=== PATIENT | male | born 1945 | race African-American/Black ===

== ENCOUNTER 2018-08-20 09:59 | Inpatient (IN) | payer MEDICARE, OTHER ==
[~2018-08-20] VITALS: Ht 167.6 cm; Wt 81.6 kg
[2018-08-20] MEDS ORDERED: PRO1 PO (10:09)
[2018-08-20] MEDS ORDERED: ASPI-986 PO (10:09)
[2018-08-20] MEDS ORDERED: FENTANYL CITRATE/PF 50MCG/ML 2ML VIAL IV ONE (10:30)
[2018-08-20 11:04] LABS: BASOPHILS % 0.9 % (0.0-2.0); EOSINOPHILS % 1.1 % (0.0-5.0); HEMATOCRIT. 27.5 % (42.0-52.0); HEMOGLOBIN. 9.5 g/dL (14.0-18.0); LYMPHOCYTES % 16.4 % (20.0-50.0); MEAN CORPUSCULAR HEMOGLOBIN 30.5 pg (28.0-32.0); MEAN PLATELET VOLUME 7.2 fl (7.4-10.4); MONOCYTES % 8.6 % (2.0-8.0); PLATELET 169 x1000/uL (130-400); RED BLOOD CELL COUNT 3.13 mill/uL (4.7-6.1); RED CELL DISTRIBUTION WIDTH 15.2 % (11.6-14.6)
[2018-08-20 11:11] LABS: CHLORIDE 102 mEq/L (98-107); INR 1.1; PROTHROMBIN TIME 10.7 sec (9.1-11.1)
[2018-08-20 11:20] LABS: PHOSPHORUS 2.5 mg/dL (2.5-4.9)
[2018-08-20] MEDS ORDERED: OXYCODONE HCL/ACETAMINOPHEN 5/325MG TABLET PO ONE (12:15)
[2018-08-20] MEDS ORDERED: ONDANSETRON HCL 4MG/2ML INJ IV PRN (15:15)
[2018-08-20] MEDS ORDERED: POTASSIUM CHLORIDE 20MEQ TABLET SR PO PRN (15:15)
[2018-08-20] MEDS ORDERED: HYDROCODONE/ACETAMINOPHEN 5/325MG TABLET PO PRN (15:15)
[2018-08-20] MEDS ORDERED: ACETAMINOPHEN 325MG TABLET PO PRN (15:15)
[2018-08-20] MEDS ORDERED: CLONIDINE 0.1MG TABLET PO PRN (15:15)
[2018-08-20] MEDS ORDERED: HYDROCODONE/ACETAMINOPHEN 10/325MG TABLET PO PRN (15:15)
[2018-08-20 15:50] VITALS: BP 146/84
[2018-08-20 16:00] VITALS: BP 146/84
[2018-08-20] MEDS: HYDROMORPHONE HCL/PF 2MG/ML CPJ IV PRN (16:12)
[2018-08-20] MEDS: PANTOPRAZOLE 40MG DR TABLET PO SCH (19:06)
[2018-08-20] MEDS: AMOXICILLIN 500 MG CAPSULE PO SCH (19:06)
[2018-08-20 20:00] VITALS: BP 155/81
[2018-08-20] MEDS: NIFEDIPINE 10MG CAPSULE PO SCH (22:13)
[2018-08-20] MEDS: CLARITHROMYCIN 500MG TABLET PO SCH (22:14)
[2018-08-21] VITALS: BP 126/65
[2018-08-21] MEDS: HYDROMORPHONE HCL/PF 2MG/ML CPJ IV PRN ×5 (03:17→22:49)
[2018-08-21 03:33] VITALS: BP 124/72
[2018-08-21] MEDS: AMOXICILLIN 500 MG CAPSULE PO SCH ×2 (06:00→17:33)
[2018-08-21] MEDS: NIFEDIPINE 10MG CAPSULE PO SCH ×3 (06:00→22:00)
[2018-08-21 07:08] LABS: BASOPHILS % 0.5 % (0.0-2.0); EOSINOPHILS % 1.9 % (0.0-5.0); HEMATOCRIT. 27.3 % (42.0-52.0); HEMOGLOBIN. 9.5 g/dL (14.0-18.0); LYMPHOCYTES % 12.7 % (20.0-50.0); MEAN CORPUSCULAR HEMOGLOBIN 30.6 pg (28.0-32.0); MEAN CORPUSCULAR VOLUME 87.8 fL (80.0-94.0); MEAN PLATELET VOLUME 7.5 fl (7.4-10.4); MONOCYTES % 10.8 % (2.0-8.0); NEUTROPHILS % 74.1 % (40.0-76.0); PLATELET 164 x1000/uL (130-400); RED BLOOD CELL COUNT 3.11 mill/uL (4.7-6.1); RED CELL DISTRIBUTION WIDTH 15.1 % (11.6-14.6)
[2018-08-21 08:00] VITALS: BP 112/70
[2018-08-21] MEDS: CLARITHROMYCIN 500MG TABLET PO SCH ×2 (09:19→21:00)
[2018-08-21] MEDS: PANTOPRAZOLE 40MG DR TABLET PO SCH ×2 (09:19→16:38)
[2018-08-21] MEDS: FOLIC ACID/VITAMIN B COMP W-C TABLET PO SCH (10:26)
[2018-08-21 11:58] VITALS: BP 123/83
[2018-08-21] MEDS: CALCIUM ACETATE 667MG CAPSULE PO SCH ×2 (12:00→17:33)
[2018-08-21 16:00] VITALS: BP 146/82
[2018-08-21 20:00] VITALS: BP 176/87
[2018-08-22] VITALS: BP 135/63
[2018-08-22] MEDS ORDERED: ACETAMINOPHEN 650MG SUPP PR PRN (01:30)
[2018-08-22] MEDS: HYDROMORPHONE HCL/PF 2MG/ML CPJ IV PRN ×6 (02:37→22:47)
[2018-08-22 04:00] VITALS: BP 148/73
[2018-08-22 07:32] LABS: BASOPHILS % 0.6 % (0.0-2.0); EOSINOPHILS % 0.6 % (0.0-5.0); HEMATOCRIT. 30.5 % (42.0-52.0); HEMOGLOBIN. 10.6 g/dL (14.0-18.0); LYMPHOCYTES % 10.1 % (20.0-50.0); MEAN CORPUSCULAR HEMOGLOBIN 30.7 pg (28.0-32.0); MEAN CORPUSCULAR VOLUME 88.2 fL (80.0-94.0); MEAN PLATELET VOLUME 8.4 fl (7.4-10.4); MONOCYTES % 9.9 % (2.0-8.0); NEUTROPHILS % 78.8 % (40.0-76.0); PLATELET 181 x1000/uL (130-400); RED BLOOD CELL COUNT 3.46 mill/uL (4.7-6.1); RED CELL DISTRIBUTION WIDTH 15.6 % (11.6-14.6)
[2018-08-22] MEDS: CALCIUM ACETATE 667MG CAPSULE PO SCH ×3 (07:50→17:27)
[2018-08-22 08:00] VITALS: BP 122/74
[2018-08-22] MEDS: CLARITHROMYCIN 500MG TABLET PO SCH ×2 (08:51→21:05)
[2018-08-22] MEDS: PANTOPRAZOLE 40MG DR TABLET PO SCH ×2 (08:51→17:27)
[2018-08-22] MEDS: NIFEDIPINE 10MG CAPSULE PO SCH ×3 (08:51→22:46)
[2018-08-22] MEDS: FOLIC ACID/VITAMIN B COMP W-C TABLET PO SCH (08:51)
[2018-08-22] MEDS: AMOXICILLIN 500 MG CAPSULE PO SCH ×2 (08:51→17:27)
[2018-08-22 12:00] VITALS: BP 121/69
[2018-08-22 16:00] VITALS: BP 133/82
[2018-08-22 20:00] VITALS: BP 118/69
[2018-08-23] VITALS: BP 106/71
[2018-08-23] MEDS: HYDROMORPHONE HCL/PF 2MG/ML CPJ IV PRN ×4 (02:16→13:24)
[2018-08-23 04:00] VITALS: BP 126/69
[2018-08-23] MEDS: AMOXICILLIN 500 MG CAPSULE PO SCH ×2 (05:13→18:00)
[2018-08-23] MEDS: NIFEDIPINE 10MG CAPSULE PO SCH ×3 (06:00→22:31)
[2018-08-23 07:09] LABS: BASOPHILS % 0.5 % (0.0-2.0); EOSINOPHILS % 1.5 % (0.0-5.0); HEMATOCRIT. 29.4 % (42.0-52.0); HEMOGLOBIN. 9.9 g/dL (14.0-18.0); LYMPHOCYTES % 13.3 % (20.0-50.0); MEAN CORPUSCULAR VOLUME 89.4 fL (80.0-94.0); MEAN PLATELET VOLUME 8.4 fl (7.4-10.4); MONOCYTES % 13.1 % (2.0-8.0); NEUTROPHILS % 71.6 % (40.0-76.0); PLATELET 164 x1000/uL (130-400); RED BLOOD CELL COUNT 3.29 mill/uL (4.7-6.1); RED CELL DISTRIBUTION WIDTH 15.3 % (11.6-14.6)
[2018-08-23] MEDS: CALCIUM ACETATE 667MG CAPSULE PO SCH ×3 (07:50→17:50)
[2018-08-23] MEDS ORDERED: DEXT 5%/0.45% NACL 1000ML 1,000 ML IV SCH (08:45)
[2018-08-23] MEDS: PANTOPRAZOLE 40MG DR TABLET PO SCH ×2 (09:00→17:00)
[2018-08-23] MEDS: FOLIC ACID/VITAMIN B COMP W-C TABLET PO SCH (09:00)
[2018-08-23] MEDS: CLARITHROMYCIN 500MG TABLET PO SCH ×2 (09:00→20:53)
[2018-08-23 12:00] VITALS: BP 133/76
[2018-08-23] MEDS ORDERED: KETOROLAC 30MG/ML VIAL ONE (14:04)
[2018-08-23] MEDS ORDERED: MORPHINE SULFATE/PF 1MG/ML 10ML AMP ONE (14:04)
[2018-08-23] MEDS ORDERED: EPINEPHRINE 1:1000 1 MG/ML AMP ONE (14:04)
[2018-08-23] MEDS ORDERED: BUPIVACAINE HCL/PF 0.5% (5MG/ML) 10ML ONE (14:08)
[2018-08-23] MEDS ORDERED: NORMAL SALINE 0.9% 10 ML SYR ONE (14:16)
[2018-08-23] MEDS ORDERED: ROPIVACAINE HCL 10MG/ML 20 ML VIAL EPI ONE (14:16)
[2018-08-23] MEDS ORDERED: TRANEXAMIC ACID 1,000 MG/10 ML IV SCH (15:15)
[2018-08-23] MEDS ORDERED: TRANEXAMIC ACID 1,000 MG in SODIUM CHLORIDE 0.9% 100 ML IV SCH (15:15)
[2018-08-23 16:00] VITALS: BP 166/86
[2018-08-23] MEDS ORDERED: FENTANYL CITRATE/PF 50MCG/ML 2ML VIAL ONE (17:27)
[2018-08-23] MEDS ORDERED: HYDROMORPHONE HCL/PF 2MG/ML CPJ IV PRN (17:45)
[2018-08-23] MEDS ORDERED: FENTANYL CITRATE/PF 50MCG/ML 2ML VIAL IV PRN (17:45)
[2018-08-23] MEDS ORDERED: PROPOFOL 200MG/20ML VIAL IV ONE (17:59)
[2018-08-23] MEDS ORDERED: CEFAZOLIN 1000MG PREMIX 50 ML IV SCH ×2 (18:45→22:00)
[2018-08-23 20:00] VITALS: BP 116/66
[2018-08-24] VITALS: BP 116/68
[2018-08-24 04:00] VITALS: BP 116/56
[2018-08-24] MEDS: HYDROMORPHONE HCL/PF 2MG/ML CPJ IV PRN (05:51)
[2018-08-24] MEDS: NIFEDIPINE 10MG CAPSULE PO SCH ×2 (05:52→14:48)
[2018-08-24] MEDS: AMOXICILLIN 500 MG CAPSULE PO SCH (05:52)
[2018-08-24 07:35] LABS: BASOPHILS % 0.4 % (0.0-2.0); HEMATOCRIT. 27.1 % (42.0-52.0); HEMOGLOBIN. 9.2 g/dL (14.0-18.0); LYMPHOCYTES % 10.4 % (20.0-50.0); MEAN CORPUSCULAR HEMOGLOBIN 30.4 pg (28.0-32.0); MEAN CORPUSCULAR VOLUME 89.3 fL (80.0-94.0); MEAN PLATELET VOLUME 8.3 fl (7.4-10.4); MONOCYTES % 13.3 % (2.0-8.0); NEUTROPHILS % 74.9 % (40.0-76.0); PLATELET 168 x1000/uL (130-400); RED BLOOD CELL COUNT 3.03 mill/uL (4.7-6.1); RED CELL DISTRIBUTION WIDTH 15.7 % (11.6-14.6)
[2018-08-24 08:00] VITALS: BP 118/62
[2018-08-24] MEDS ORDERED: ASPIRIN 325MG EC TABLET PO SCH (09:00)
[2018-08-24] MEDS: PANTOPRAZOLE 40MG DR TABLET PO SCH (09:59)
[2018-08-24] MEDS: CLARITHROMYCIN 500MG TABLET PO SCH (09:59)
[2018-08-24] MEDS: CALCIUM ACETATE 667MG CAPSULE PO SCH ×2 (09:59→14:38)
[2018-08-24] MEDS: FOLIC ACID/VITAMIN B COMP W-C TABLET PO SCH (10:00)
[2018-08-24 11:02] LABS: CHLORIDE 103 mEq/L (98-107)
[2018-08-24 12:00] VITALS: BP 115/62
[2018-08-24] MEDS ORDERED: LACTULOSE 20G/30ML UDC PO SCH (14:00)
[2018-08-24 16:00] VITALS: BP 105/56
[2018-08-24 17:00] VITALS: BP 123/66
== END 2018-08-24 17:29 | DRG 469 ==
LOC: ER 09:59 → ENRESERV 11:58 → 6EST 12:06 → EDBEDREQTM 12:19 → EDBEDREQ 12:19
PROVIDERS: ADMIT Physical Medicine & Rehabilitation Spinal Cord Injury Medicine; ATTEND Emergency Medicine
PROC: 5A1D70Z Performance of Urinary Filtration, Intermittent, Less than 6 Hours Per Day (ICD-10-PCS; 2018-08-21)
PROC: 5A1D70Z Performance of Urinary Filtration, Intermittent, Less than 6 Hours Per Day (ICD-10-PCS; 2018-08-23)
PROC: 0SRR0JA Replacement of Right Hip Joint, Femoral Surface with Synthetic Substitute, Uncemented, Open Approach (ICD-10-PCS; principal; 2018-08-23 16:30)
DX: S72.031A Displaced midcervical fracture of right femur, initial encounter for closed fracture (principal); N18.6 End stage renal disease; I12.0 Hypertensive chronic kidney disease with stage 5 chronic kidney disease or end stage renal disease; Z99.2 Dependence on renal dialysis; K29.70 Gastritis, unspecified, without bleeding; D64.9 Anemia, unspecified; B96.81 Helicobacter pylori [H. pylori] as the cause of diseases classified elsewhere; H91.90 Unspecified hearing loss, unspecified ear; I45.81 Long QT syndrome; W18.39XA Other fall on same level, initial encounter; Y93.89 Activity, other specified; Y92.89 Other specified places as the place of occurrence of the external cause; Y99.8 Other external cause status
CPT/HCPCS: 36415; 36430; 71045; 72170; 73502; 73560; 80048; 83735; 84100; 84484; 86850; 86900; 88305; 88311; 93005; 93306; 96374; 97110; 97162; 97530; 99291; A4216; C1776; J0690; J1170; J1885; J2274; J2704; J2795; J3010; J3490; J7030; J7050

== ENCOUNTER 2018-08-24 17:20 | Inpatient (IN) | payer MEDICARE, OTHER ==
[~2018-08-24] VITALS: Ht 167.6 cm; Wt 81.6 kg
[2018-08-24 17:20] VITALS: BP 122/60
[~2018-08-24 17:20] MED LIST: ASPI-986 PO; PRO1 PO
[2018-08-24] MEDS ORDERED: HYDROMORPHONE HCL/PF 2MG/ML CPJ IV PRN (18:30)
[2018-08-24] MEDS ORDERED: CLONIDINE 0.1MG TABLET PO PRN (18:30)
[2018-08-24] MEDS ORDERED: POTASSIUM CHLORIDE 20MEQ TABLET SR PO PRN (18:30)
[2018-08-24] MEDS ORDERED: ACETAMINOPHEN 650MG SUPP PR PRN (18:30)
[2018-08-24] MEDS ORDERED: THROAT LOZENGES-BENZOCAINE/MENTH/CETYLPYRD CL LOZENGES MM PRN (18:45)
[2018-08-24] MEDS: DEXT 5%/0.45% NACL 1000ML 1,000 ML IV SCH (19:15)
[2018-08-24 20:00] VITALS: BP 129/68
[2018-08-24] MEDS ORDERED: PNEUMOCOCCAL 23-VAL P-SAC VAC 0.5 ML IM ONE (20:15)
[2018-08-24 22:00] VITALS: BP 129/68
[2018-08-24] MEDS: AMOXICILLIN 500 MG CAPSULE PO SCH (22:01)
[2018-08-24] MEDS: LACTULOSE 20G/30ML UDC PO SCH (22:01)
[2018-08-24] MEDS: NIFEDIPINE 10MG CAPSULE PO SCH (22:02)
[2018-08-24] MEDS: CEFAZOLIN 1000MG PREMIX 50 ML IV SCH (22:02)
[2018-08-24] MEDS: CLARITHROMYCIN 500MG TABLET PO SCH (22:41)
[2018-08-25] VITALS: BP 129/68
[2018-08-25] MEDS: NIFEDIPINE 10MG CAPSULE PO SCH ×2 (06:38→15:17)
[2018-08-25 07:22] LABS: BASOPHILS % 0.5 % (0.0-2.0); EOSINOPHILS % 1.6 % (0.0-5.0); HEMATOCRIT. 27.6 % (42.0-52.0); HEMOGLOBIN. 9.3 g/dL (14.0-18.0); LYMPHOCYTES % 14.2 % (20.0-50.0); MEAN CORPUSCULAR HEMOGLOBIN 30.3 pg (28.0-32.0); MEAN PLATELET VOLUME 8.2 fl (7.4-10.4); MONOCYTES % 13.8 % (2.0-8.0); NEUTROPHILS % 69.9 % (40.0-76.0); PLATELET 220 x1000/uL (130-400); RED BLOOD CELL COUNT 3.07 mill/uL (4.7-6.1)
[2018-08-25 07:53] LABS: CHLORIDE 101 mEq/L (98-107)
[2018-08-25 08:00] VITALS: BP 127/75
[2018-08-25] MEDS: CALCIUM ACETATE 667MG CAPSULE PO SCH ×3 (08:57→17:21)
[2018-08-25] MEDS: AMOXICILLIN 500 MG CAPSULE PO SCH (08:57)
[2018-08-25] MEDS: CLARITHROMYCIN 500MG TABLET PO SCH (08:57)
[2018-08-25] MEDS: FOLIC ACID/VITAMIN B COMP W-C TABLET PO SCH (08:57)
[2018-08-25] MEDS: LACTULOSE 20G/30ML UDC PO SCH ×4 (08:57→17:00)
[2018-08-25] MEDS: PANTOPRAZOLE 40MG DR TABLET PO SCH ×2 (08:57→17:20)
[2018-08-25] MEDS: ASPIRIN 325MG EC TABLET PO SCH ×2 (08:57→17:21)
[2018-08-25] MEDS: DOCUSATE SODIUM 100MG CAPSULE PO SCH (17:21)
[2018-08-25] MEDS: DEXT 5%/0.45% NACL 1000ML 1,000 ML IV SCH (18:38)
[2018-08-25 20:00] VITALS: BP 121/67
[2018-08-25] MEDS: HYDROCODONE/ACETAMINOPHEN 10/325MG TABLET PO PRN (20:38)
[2018-08-25] MEDS: POLYETHYLENE GLYCOL 3350 (17GM) 1 DOSE PACK PO SCH (21:00)
[2018-08-25] MEDS: CEFAZOLIN 1000MG PREMIX 50 ML IV SCH (21:04)
[2018-08-26 00:58] VITALS: BP 110/71
[2018-08-26] MEDS: AMOXICILLIN 500 MG CAPSULE PO SCH ×3 (00:58→20:36)
[2018-08-26] MEDS: NIFEDIPINE 10MG CAPSULE PO SCH ×4 (00:58→21:20)
[2018-08-26] MEDS: CLARITHROMYCIN 500MG TABLET PO SCH ×3 (00:58→20:36)
[2018-08-26 07:11] LABS: BASOPHILS % 0.4 % (0.0-2.0); EOSINOPHILS % 0.7 % (0.0-5.0); HEMOGLOBIN. 9.1 g/dL (14.0-18.0); LYMPHOCYTES % 10.6 % (20.0-50.0); MEAN CORPUSCULAR HEMOGLOBIN 29.8 pg (28.0-32.0); MEAN CORPUSCULAR VOLUME 88.9 fL (80.0-94.0); MEAN PLATELET VOLUME 8.1 fl (7.4-10.4); NEUTROPHILS % 74.3 % (40.0-76.0); PLATELET 230 x1000/uL (130-400); RED BLOOD CELL COUNT 3.04 mill/uL (4.7-6.1); RED CELL DISTRIBUTION WIDTH 15.6 % (11.6-14.6)
[2018-08-26 08:00] VITALS: BP 118/64
[2018-08-26] MEDS: CALCIUM ACETATE 667MG CAPSULE PO SCH ×3 (09:28→17:53)
[2018-08-26] MEDS: FOLIC ACID/VITAMIN B COMP W-C TABLET PO SCH (09:28)
[2018-08-26] MEDS: ASPIRIN 325MG EC TABLET PO SCH ×2 (09:28→17:53)
[2018-08-26] MEDS: PANTOPRAZOLE 40MG DR TABLET PO SCH ×2 (09:28→17:53)
[2018-08-26] MEDS: DOCUSATE SODIUM 100MG CAPSULE PO SCH ×2 (09:28→17:53)
[2018-08-26] MEDS ORDERED: THROAT LOZENGES-BENZOCAINE/MENTH/CETYLPYRD CL LOZENGES MM PRN (10:30)
[2018-08-26 20:00] VITALS: BP 106/63
[2018-08-26] MEDS: POLYETHYLENE GLYCOL 3350 (17GM) 1 DOSE PACK PO SCH (20:36)
[2018-08-27] MEDS: NIFEDIPINE 10MG CAPSULE PO SCH ×3 (06:07→22:00)
[2018-08-27 06:55] LABS: HEMATOCRIT. 23.6 % (42.0-52.0); MEAN CORPUSCULAR HEMOGLOBIN 30.5 pg (28.0-32.0); MEAN CORPUSCULAR VOLUME 89.8 fL (80.0-94.0); MEAN PLATELET VOLUME 7.7 fl (7.4-10.4); PLATELET 229 x1000/uL (130-400); RED BLOOD CELL COUNT 2.63 mill/uL (4.7-6.1); RED CELL DISTRIBUTION WIDTH 15.8 % (11.6-14.6)
[2018-08-27 07:16] LABS: PHOSPHORUS 4.2 mg/dL (2.5-4.9)
[2018-08-27 07:50] VITALS: BP 112/62
[2018-08-27 08:05] LABS: FOLIC ACID (FOLATE) SERUM 13.3 ng/mL (>5.38)
[2018-08-27] MEDS: CALCIUM ACETATE 667MG CAPSULE PO SCH ×3 (08:41→17:00)
[2018-08-27] MEDS: AMOXICILLIN 500 MG CAPSULE PO SCH ×2 (08:41→21:00)
[2018-08-27] MEDS: ASPIRIN 325MG EC TABLET PO SCH (08:41)
[2018-08-27] MEDS: FOLIC ACID/VITAMIN B COMP W-C TABLET PO SCH (08:41)
[2018-08-27] MEDS: CLARITHROMYCIN 500MG TABLET PO SCH ×2 (08:41→21:00)
[2018-08-27] MEDS: PANTOPRAZOLE 40MG DR TABLET PO SCH ×2 (08:41→17:33)
[2018-08-27] MEDS: DOCUSATE SODIUM 100MG CAPSULE PO SCH ×2 (08:41→17:33)
[2018-08-27 09:20] LABS: PLATELET ESTIMATE NORMAL
[2018-08-27] MEDS ORDERED: BARIUM SULFATE 176 GM SUSP.RECON ONE (09:43)
[2018-08-27 11:55] VITALS: BP 109/64
[2018-08-27] MEDS: HYDROCODONE/ACETAMINOPHEN 10/325MG TABLET PO PRN ×2 (12:01→15:52)
[2018-08-27 15:45] VITALS: BP 116/66
[2018-08-27] MEDS: LACTULOSE 20G/30ML UDC PO SCH ×2 (20:00→21:00)
[2018-08-27 20:35] VITALS: BP 110/66
[2018-08-27] MEDS: EPOETIN ALFA 10000UNITS/ML VIAL SUBCUT SCH (21:00)
[2018-08-27] MEDS: POLYETHYLENE GLYCOL 3350 (17GM) 1 DOSE PACK PO SCH (21:00)
[2018-08-28] MEDS: EPOETIN ALFA 10000UNITS/ML VIAL SUBCUT SCH (02:32)
[2018-08-28] MEDS: HYDROCODONE/ACETAMINOPHEN 5/325MG TABLET PO PRN ×3 (03:01→22:52)
[2018-08-28] MEDS: NIFEDIPINE 10MG CAPSULE PO SCH ×4 (05:39→22:00)
[2018-08-28 07:46] VITALS: BP 100/63
[2018-08-28 07:48] LABS: HEMATOCRIT. 25.3 % (42.0-52.0); HEMOGLOBIN. 8.5 g/dL (14.0-18.0); MEAN PLATELET VOLUME 7.6 fl (7.4-10.4); PLATELET 270 x1000/uL (130-400); RED BLOOD CELL COUNT 2.84 mill/uL (4.7-6.1); RED CELL DISTRIBUTION WIDTH 15.3 % (11.6-14.6)
[2018-08-28] MEDS: AMOXICILLIN 500 MG CAPSULE PO SCH ×2 (08:08→21:29)
[2018-08-28] MEDS: LACTULOSE 20G/30ML UDC PO SCH (08:08)
[2018-08-28] MEDS: DOCUSATE SODIUM 100MG CAPSULE PO SCH ×2 (08:09→16:33)
[2018-08-28] MEDS: FOLIC ACID/VITAMIN B COMP W-C TABLET PO SCH (08:09)
[2018-08-28] MEDS: PANTOPRAZOLE 40MG DR TABLET PO SCH ×2 (08:09→16:33)
[2018-08-28] MEDS: ENOXAPARIN 30MG/0.3ML SYR SUBCUT SCH (08:09)
[2018-08-28] MEDS: CALCIUM ACETATE 667MG CAPSULE PO SCH ×3 (08:09→16:33)
[2018-08-28] MEDS: CLARITHROMYCIN 500MG TABLET PO SCH ×2 (08:09→21:29)
[2018-08-28 09:35] LABS: PLATELET ESTIMATE NORMAL
[2018-08-28] MEDS ORDERED: SORBITOL 70% SOLN 30ML PO SCH (13:00)
[2018-08-28 20:00] VITALS: BP 121/54
[2018-08-28] MEDS: POLYETHYLENE GLYCOL 3350 (17GM) 1 DOSE PACK PO SCH ×2 (21:00→21:29)
[2018-08-28] MEDS: LIDOCAINE 5% PATCH TOP SCH (21:30)
[2018-08-29] MEDS: NIFEDIPINE 10MG CAPSULE PO SCH ×3 (06:00→21:48)
[2018-08-29 07:42] VITALS: BP 117/68
[2018-08-29] MEDS: DOCUSATE SODIUM 100MG CAPSULE PO SCH ×2 (08:30→19:08)
[2018-08-29] MEDS: FOLIC ACID/VITAMIN B COMP W-C TABLET PO SCH (08:30)
[2018-08-29] MEDS: HYDROCODONE/ACETAMINOPHEN 10/325MG TABLET PO PRN ×2 (08:32→13:27)
[2018-08-29] MEDS: PANTOPRAZOLE 40MG DR TABLET PO SCH ×2 (08:32→19:07)
[2018-08-29] MEDS: AMOXICILLIN 500 MG CAPSULE PO SCH ×2 (08:32→21:48)
[2018-08-29] MEDS: CLARITHROMYCIN 500MG TABLET PO SCH ×2 (08:32→21:48)
[2018-08-29] MEDS: CALCIUM ACETATE 667MG CAPSULE PO SCH ×3 (08:32→19:08)
[2018-08-29] MEDS: LIDOCAINE 5% PATCH TOP SCH (08:33)
[2018-08-29] MEDS: ENOXAPARIN 30MG/0.3ML SYR SUBCUT SCH (08:34)
[2018-08-29 11:22] LABS: HEMATOCRIT. 25.8 % (42.0-52.0); HEMOGLOBIN. 8.8 g/dL (14.0-18.0); MEAN CORPUSCULAR HEMOGLOBIN 30.4 pg (28.0-32.0); MEAN CORPUSCULAR VOLUME 89.2 fL (80.0-94.0); MEAN PLATELET VOLUME 7.5 fl (7.4-10.4); PLATELET 308 x1000/uL (130-400); RED BLOOD CELL COUNT 2.89 mill/uL (4.7-6.1); RED CELL DISTRIBUTION WIDTH 15.2 % (11.6-14.6)
[2018-08-29 11:43] LABS: CHLORIDE 96 mEq/L (98-107)
[2018-08-29 11:52] LABS: PHOSPHORUS 4.3 mg/dL (2.5-4.9)
[2018-08-29 12:38] LABS: PLATELET ESTIMATE NORMAL
[2018-08-29 20:00] VITALS: BP 103/41
[2018-08-29] MEDS: POLYETHYLENE GLYCOL 3350 (17GM) 1 DOSE PACK PO SCH (21:48)
[2018-08-29] MEDS: EPOETIN ALFA 10000UNITS/ML VIAL SUBCUT SCH (23:15)
[2018-08-30] MEDS: HYDROCODONE/ACETAMINOPHEN 5/325MG TABLET PO PRN (00:16)
[2018-08-30] MEDS: NIFEDIPINE 10MG CAPSULE PO SCH ×3 (06:00→21:32)
[2018-08-30 08:00] VITALS: BP 108/56
[2018-08-30] MEDS: ENOXAPARIN 30MG/0.3ML SYR SUBCUT SCH (08:17)
[2018-08-30] MEDS: LIDOCAINE 5% PATCH TOP SCH (08:18)
[2018-08-30] MEDS: HYDROCODONE/ACETAMINOPHEN 10/325MG TABLET PO PRN ×2 (08:20→12:48)
[2018-08-30] MEDS: CALCIUM ACETATE 667MG CAPSULE PO SCH ×3 (08:22→17:58)
[2018-08-30] MEDS: FOLIC ACID/VITAMIN B COMP W-C TABLET PO SCH (08:22)
[2018-08-30] MEDS: DOCUSATE SODIUM 100MG CAPSULE PO SCH ×2 (08:22→17:58)
[2018-08-30] MEDS: AMOXICILLIN 500 MG CAPSULE PO SCH ×2 (08:22→20:58)
[2018-08-30] MEDS: PANTOPRAZOLE 40MG DR TABLET PO SCH ×2 (08:22→17:58)
[2018-08-30] MEDS: CLARITHROMYCIN 500MG TABLET PO SCH ×2 (08:22→20:58)
[2018-08-30 17:09] LABS: 25-HYDROXY VITAMIN D3 18 ng/mL (.)
[2018-08-30] MEDS: BISACODYL 10MG SUPP PR NR (17:58)
[2018-08-30] MEDS: LACTULOSE 20G/30ML UDC PO SCH ×2 (18:03→20:58)
[2018-08-30 20:00] VITALS: BP 98/62
[2018-08-30] MEDS: POLYETHYLENE GLYCOL 3350 (17GM) 1 DOSE PACK PO SCH (20:59)
[2018-08-30 21:32] VITALS: BP 106/61
[2018-08-31] MEDS: NIFEDIPINE 10MG CAPSULE PO SCH ×4 (05:41→21:46)
[2018-08-31] MEDS: HYDROCODONE/ACETAMINOPHEN 5/325MG TABLET PO PRN ×2 (06:52→14:26)
[2018-08-31 07:47] LABS: HEMATOCRIT. 26.3 % (42.0-52.0); HEMOGLOBIN. 8.9 g/dL (14.0-18.0); MEAN CORPUSCULAR HEMOGLOBIN 30.5 pg (28.0-32.0); MEAN CORPUSCULAR VOLUME 90.5 fL (80.0-94.0); MEAN PLATELET VOLUME 7.3 fl (7.4-10.4); PLATELET 331 x1000/uL (130-400); RED BLOOD CELL COUNT 2.91 mill/uL (4.7-6.1); RED CELL DISTRIBUTION WIDTH 15.6 % (11.6-14.6)
[2018-08-31 07:54] VITALS: BP 110/61
[2018-08-31 08:31] LABS: PLATELET ESTIMATE NORMAL
[2018-08-31] MEDS: AMOXICILLIN 500 MG CAPSULE PO SCH ×2 (08:47→21:31)
[2018-08-31] MEDS: PANTOPRAZOLE 40MG DR TABLET PO SCH ×2 (08:48→18:15)
[2018-08-31] MEDS: DOCUSATE SODIUM 100MG CAPSULE PO SCH ×2 (08:48→18:16)
[2018-08-31] MEDS: FOLIC ACID/VITAMIN B COMP W-C TABLET PO SCH (08:48)
[2018-08-31] MEDS: CALCIUM ACETATE 667MG CAPSULE PO SCH ×3 (08:48→18:15)
[2018-08-31] MEDS: LIDOCAINE 5% PATCH TOP SCH (08:50)
[2018-08-31] MEDS: ENOXAPARIN 30MG/0.3ML SYR SUBCUT SCH (09:00)
[2018-08-31] MEDS: CLARITHROMYCIN 500MG TABLET PO SCH ×2 (09:58→21:31)
[2018-08-31] MEDS: ERGOCALCIFEROL 50000UNITS CAPSULE PO SCH (13:12)
[2018-08-31] MEDS: BISACODYL 10MG SUPP PR NR (17:00)
[2018-08-31 20:00] VITALS: BP 93/46
[2018-08-31] MEDS: POLYETHYLENE GLYCOL 3350 (17GM) 1 DOSE PACK PO SCH (21:00)
[2018-08-31] MEDS: ACETAMINOPHEN 650MG/20.3ML UDC PO PRN (21:32)
[2018-08-31] MEDS: EPOETIN ALFA 10000UNITS/ML VIAL SUBCUT SCH (21:32)
[2018-08-31 21:46] VITALS: BP 100/53
[2018-09-01] MEDS: ACETAMINOPHEN 650MG/20.3ML UDC PO PRN (04:12)
[2018-09-01] MEDS: NIFEDIPINE 10MG CAPSULE PO SCH ×3 (06:00→21:53)
[2018-09-01 08:12] VITALS: BP 102/57
[2018-09-01] MEDS: LIDOCAINE 5% PATCH TOP SCH (09:09)
[2018-09-01] MEDS: ENOXAPARIN 30MG/0.3ML SYR SUBCUT SCH (09:10)
[2018-09-01] MEDS: PANTOPRAZOLE 40MG DR TABLET PO SCH ×2 (09:10→17:05)
[2018-09-01] MEDS: CALCIUM ACETATE 667MG CAPSULE PO SCH ×3 (09:10→17:05)
[2018-09-01] MEDS: DOCUSATE SODIUM 100MG CAPSULE PO SCH ×2 (09:10→17:05)
[2018-09-01] MEDS: FOLIC ACID/VITAMIN B COMP W-C TABLET PO SCH (09:11)
[2018-09-01] MEDS: HYDROCODONE/ACETAMINOPHEN 10/325MG TABLET PO PRN (10:13)
[2018-09-01 20:00] VITALS: BP 104/58
[2018-09-01] MEDS: POLYETHYLENE GLYCOL 3350 (17GM) 1 DOSE PACK PO SCH (21:52)
[2018-09-02] MEDS: ACETAMINOPHEN 650MG/20.3ML UDC PO PRN ×2 (00:17→13:37)
[2018-09-02] MEDS: NIFEDIPINE 10MG CAPSULE PO SCH ×3 (05:09→22:04)
[2018-09-02 08:23] VITALS: BP 126/66
[2018-09-02] MEDS: DOCUSATE SODIUM 100MG CAPSULE PO SCH ×2 (08:41→17:00)
[2018-09-02] MEDS: PANTOPRAZOLE 40MG DR TABLET PO SCH ×2 (08:41→17:21)
[2018-09-02] MEDS: ENOXAPARIN 30MG/0.3ML SYR SUBCUT SCH (08:41)
[2018-09-02] MEDS: FOLIC ACID/VITAMIN B COMP W-C TABLET PO SCH (08:41)
[2018-09-02] MEDS: CALCIUM ACETATE 667MG CAPSULE PO SCH ×3 (08:41→17:21)
[2018-09-02] MEDS: LIDOCAINE 5% PATCH TOP SCH (08:42)
[2018-09-02] MEDS ORDERED: SORBITOL 70% SOLN 30ML PO SCH (12:15)
[2018-09-02] MEDS: LACTULOSE 20G/30ML UDC PO SCH ×2 (13:58→22:00)
[2018-09-02 20:00] VITALS: BP 144/60
[2018-09-03] MEDS: LACTULOSE 20G/30ML UDC PO SCH (06:00)
[2018-09-03] MEDS: NIFEDIPINE 10MG CAPSULE PO SCH ×3 (06:14→22:00)
[2018-09-03 06:43] LABS: BASOPHILS % 0.8 % (0.0-2.0); EOSINOPHILS % 0.8 % (0.0-5.0); HEMATOCRIT. 28.3 % (42.0-52.0); HEMOGLOBIN. 9.4 g/dL (14.0-18.0); LYMPHOCYTES % 21.3 % (20.0-50.0); MEAN CORPUSCULAR HEMOGLOBIN 30.4 pg (28.0-32.0); MEAN CORPUSCULAR VOLUME 91.1 fL (80.0-94.0); MEAN PLATELET VOLUME 7.2 fl (7.4-10.4); MONOCYTES % 11.1 % (2.0-8.0); PLATELET 414 x1000/uL (130-400); RED CELL DISTRIBUTION WIDTH 15.5 % (11.6-14.6)
[2018-09-03 08:00] VITALS: BP 142/50
[2018-09-03] MEDS: FOLIC ACID/VITAMIN B COMP W-C TABLET PO SCH (09:11)
[2018-09-03] MEDS: DOCUSATE SODIUM 100MG CAPSULE PO SCH ×2 (09:11→16:21)
[2018-09-03] MEDS: PANTOPRAZOLE 40MG DR TABLET PO SCH ×2 (09:11→16:21)
[2018-09-03] MEDS: CALCIUM ACETATE 667MG CAPSULE PO SCH ×3 (09:12→16:21)
[2018-09-03] MEDS: LIDOCAINE 5% PATCH TOP SCH (09:13)
[2018-09-03] MEDS: ENOXAPARIN 30MG/0.3ML SYR SUBCUT SCH (09:13)
[2018-09-03] MEDS: HYDROCODONE/ACETAMINOPHEN 10/325MG TABLET PO PRN ×3 (09:18→18:30)
[2018-09-03] MEDS ORDERED: BISACODYL 10MG SUPP PR PRN (11:00)
[2018-09-03] MEDS ORDERED: BISACODYL 10MG SUPP PR NR (13:30)
[2018-09-03 20:00] VITALS: BP 124/69
[2018-09-03] MEDS ORDERED: HYDROCODONE/ACETAMINOPHEN 10/325MG TABLET PO PRN (20:30)
[2018-09-03] MEDS ORDERED: HYDROCODONE/ACETAMINOPHEN 5/325MG TABLET PO PRN (20:30)
[2018-09-03] MEDS ORDERED: POLYETHYLENE GLYCOL 3350 (17GM) 1 DOSE PACK PO SCH (21:00)
[2018-09-03] MEDS: POLYETHYLENE GLYCOL 3350 (17GM) 1 DOSE PACK PO SCH (22:10)
[2018-09-03] MEDS: EPOETIN ALFA 10000UNITS/ML VIAL SUBCUT SCH (22:10)
[2018-09-04] MEDS: NIFEDIPINE 10MG CAPSULE PO SCH ×3 (05:44→21:17)
[2018-09-04 08:00] VITALS: BP 98/50
[2018-09-04] MEDS: PANTOPRAZOLE 40MG DR TABLET PO SCH ×2 (09:19→16:57)
[2018-09-04] MEDS: CALCIUM ACETATE 667MG CAPSULE PO SCH ×3 (09:19→16:57)
[2018-09-04] MEDS: FOLIC ACID/VITAMIN B COMP W-C TABLET PO SCH (09:19)
[2018-09-04] MEDS: DOCUSATE SODIUM 100MG CAPSULE PO SCH ×2 (09:19→16:58)
[2018-09-04] MEDS: ENOXAPARIN 30MG/0.3ML SYR SUBCUT SCH (09:22)
[2018-09-04] MEDS: LIDOCAINE 5% PATCH TOP SCH (09:23)
[2018-09-04] MEDS: LACTULOSE 20G/30ML UDC PO SCH (16:59)
[2018-09-04 20:00] VITALS: BP 114/54
[2018-09-04] MEDS: POLYETHYLENE GLYCOL 3350 (17GM) 1 DOSE PACK PO SCH (20:36)
[2018-09-04] MEDS ORDERED: ZOLPIDEM TARTRATE 5MG TABLET PO PRN (21:00)
[2018-09-05] MEDS: NIFEDIPINE 10MG CAPSULE PO SCH ×3 (05:31→22:00)
[2018-09-05 06:58] LABS: EOSINOPHILS % 1.2 % (0.0-5.0); HEMATOCRIT. 27.4 % (42.0-52.0); HEMOGLOBIN. 9.2 g/dL (14.0-18.0); LYMPHOCYTES % 20.7 % (20.0-50.0); MEAN CORPUSCULAR HEMOGLOBIN 30.4 pg (28.0-32.0); MEAN CORPUSCULAR VOLUME 90.8 fL (80.0-94.0); MEAN PLATELET VOLUME 6.9 fl (7.4-10.4); MONOCYTES % 14.6 % (2.0-8.0); NEUTROPHILS % 62.5 % (40.0-76.0); PLATELET 363 x1000/uL (130-400); RED BLOOD CELL COUNT 3.02 mill/uL (4.7-6.1); RED CELL DISTRIBUTION WIDTH 15.7 % (11.6-14.6)
[2018-09-05 08:00] VITALS: BP 110/50
[2018-09-05] MEDS: PANTOPRAZOLE 40MG DR TABLET PO SCH ×2 (08:30→16:08)
[2018-09-05] MEDS: CALCIUM ACETATE 667MG CAPSULE PO SCH ×3 (08:30→16:08)
[2018-09-05] MEDS: FOLIC ACID/VITAMIN B COMP W-C TABLET PO SCH (08:30)
[2018-09-05] MEDS: LIDOCAINE 5% PATCH TOP SCH (08:30)
[2018-09-05] MEDS: DOCUSATE SODIUM 100MG CAPSULE PO SCH ×2 (08:30→16:08)
[2018-09-05] MEDS: ENOXAPARIN 30MG/0.3ML SYR SUBCUT SCH (08:30)
[2018-09-05] MEDS: LACTULOSE 20G/30ML UDC PO SCH (17:17)
[2018-09-05 20:00] VITALS: BP 112/57
[2018-09-05] MEDS: POLYETHYLENE GLYCOL 3350 (17GM) 1 DOSE PACK PO SCH (21:00)
[2018-09-05] MEDS: EPOETIN ALFA 10000UNITS/ML VIAL SUBCUT SCH (22:08)
[2018-09-06] MEDS: NIFEDIPINE 10MG CAPSULE PO SCH ×3 (06:00→21:32)
[2018-09-06 08:00] VITALS: BP 103/53
[2018-09-06] MEDS: DOCUSATE SODIUM 100MG CAPSULE PO SCH ×2 (08:54→16:14)
[2018-09-06] MEDS: CALCIUM ACETATE 667MG CAPSULE PO SCH ×3 (08:54→16:14)
[2018-09-06] MEDS: ENOXAPARIN 30MG/0.3ML SYR SUBCUT SCH (08:54)
[2018-09-06] MEDS: PANTOPRAZOLE 40MG DR TABLET PO SCH ×2 (08:54→16:14)
[2018-09-06] MEDS: FOLIC ACID/VITAMIN B COMP W-C TABLET PO SCH (08:54)
[2018-09-06] MEDS: LIDOCAINE 5% PATCH TOP SCH (08:55)
[2018-09-06] MEDS: LACTULOSE 20G/30ML UDC PO SCH (17:09)
[2018-09-06 20:00] VITALS: BP 110/55
[2018-09-06] MEDS: POLYETHYLENE GLYCOL 3350 (17GM) 1 DOSE PACK PO SCH (20:39)
[2018-09-07] MEDS: NIFEDIPINE 10MG CAPSULE PO SCH (05:51)
[2018-09-07 07:53] VITALS: BP 126/67
[2018-09-07 08:56] LABS: BASOPHILS % 1.4 % (0.0-2.0); EOSINOPHILS % 1.6 % (0.0-5.0); HEMATOCRIT. 27.5 % (42.0-52.0); HEMOGLOBIN. 9.2 g/dL (14.0-18.0); LYMPHOCYTES % 20.8 % (20.0-50.0); MEAN CORPUSCULAR HEMOGLOBIN 31.3 pg (28.0-32.0); MEAN CORPUSCULAR VOLUME 92.9 fL (80.0-94.0); MEAN PLATELET VOLUME 6.9 fl (7.4-10.4); MONOCYTES % 10.1 % (2.0-8.0); NEUTROPHILS % 66.1 % (40.0-76.0); PLATELET 289 x1000/uL (130-400); RED BLOOD CELL COUNT 2.95 mill/uL (4.7-6.1); RED CELL DISTRIBUTION WIDTH 15.6 % (11.6-14.6)
[2018-09-07] MEDS: ENOXAPARIN 30MG/0.3ML SYR SUBCUT SCH (09:00)
[2018-09-07] MEDS: LIDOCAINE 5% PATCH TOP SCH (09:00)
[2018-09-07] MEDS: DOCUSATE SODIUM 100MG CAPSULE PO SCH (09:00)
[2018-09-07] MEDS: PANTOPRAZOLE 40MG DR TABLET PO SCH (09:53)
[2018-09-07] MEDS: FOLIC ACID/VITAMIN B COMP W-C TABLET PO SCH (09:54)
[2018-09-07] MEDS: CALCIUM ACETATE 667MG CAPSULE PO SCH (09:54)
[2018-09-07] MEDS: ERGOCALCIFEROL 50000UNITS CAPSULE PO SCH (09:54)
[2018-09-07 11:37] VITALS: BP 126/67
== END 2018-09-07 12:50 | disposition home health service (06) | DRG 535 ==
PROVIDERS: ADMIT Physical Medicine & Rehabilitation Spinal Cord Injury Medicine; ATTEND Emergency Medicine
PROC: 5A1D70Z Performance of Urinary Filtration, Intermittent, Less than 6 Hours Per Day (ICD-10-PCS; principal; 2018-08-25)
PROC: 5A1D70Z Performance of Urinary Filtration, Intermittent, Less than 6 Hours Per Day (ICD-10-PCS; 2018-08-27)
PROC: 5A1D70Z Performance of Urinary Filtration, Intermittent, Less than 6 Hours Per Day (ICD-10-PCS; 2018-08-29)
PROC: 5A1D70Z Performance of Urinary Filtration, Intermittent, Less than 6 Hours Per Day (ICD-10-PCS; 2018-08-31)
PROC: 5A1D70Z Performance of Urinary Filtration, Intermittent, Less than 6 Hours Per Day (ICD-10-PCS; 2018-09-03)
PROC: 5A1D70Z Performance of Urinary Filtration, Intermittent, Less than 6 Hours Per Day (ICD-10-PCS; 2018-09-05)
DX: S72.031A Displaced midcervical fracture of right femur, initial encounter for closed fracture (principal); N18.6 End stage renal disease; I12.0 Hypertensive chronic kidney disease with stage 5 chronic kidney disease or end stage renal disease; W18.39XA Other fall on same level, initial encounter; Y93.89 Activity, other specified; Y92.89 Other specified places as the place of occurrence of the external cause; Y99.8 Other external cause status; D64.9 Anemia, unspecified; R26.9 Unspecified abnormalities of gait and mobility; Z99.2 Dependence on renal dialysis; B96.81 Helicobacter pylori [H. pylori] as the cause of diseases classified elsewhere; K29.70 Gastritis, unspecified, without bleeding; H91.90 Unspecified hearing loss, unspecified ear; K59.00 Constipation, unspecified; R13.10 Dysphagia, unspecified; Z86.19 Personal history of other infectious and parasitic diseases; Z96.641 Presence of right artificial hip joint; E55.9 Vitamin D deficiency, unspecified; D63.1 Anemia in chronic kidney disease; E83.41 Hypermagnesemia; F39 Unspecified mood [affective] disorder; I45.81 Long QT syndrome; G89.29 Other chronic pain
CPT/HCPCS: 36415; 73502; 74018; 74230; 80048; 82306; 82607; 82728; 82746; 83540; 83550; 83735; 84100; 84134; 84443; 84630; 92610; 92611; 93970; 97110; 97116; 97162; 97167; 97530; 97535; C1893; J0690; J0885; J1650; J3490; J7030; J7040